=== PATIENT | male | born 1960 | race Caucasian/White ===

== ENCOUNTER → 2018-11-02 | Outpatient (CLI) | payer OTHER ==
--- NOTE | 2018-11-02 17:30 | KCIC ---
6 view cervical spine series Clinical indications: Neck pain. FINDINGS: There is neural foraminal narrowing on the left side at C3-4 and C5-6 and C6-7 and on the right side at C3-4 and C4-5 and C5-6 and C6-7. This is due to a combination of uncinate joint and facet joint osteophyte formation. No acute fracture or discitis or lytic process or prevertebral soft tissue swelling is evident. No anterolisthesis is seen. There is moderate degenerative disc space narrowing and endplate spurring at C3-4 and C5-6. IMPRESSION: Moderate degenerative cervical spondylosis. Electronically signed by: Servando Giron MD (11/02/2018 5:26 PM) [facility]
== END | disposition home or self-care (01) ==
LOC: KCIC 09:53
PROVIDERS: ATTEND Physician Assistant Medical
DX: M47.892 Other spondylosis, cervical region (principal); M48.02 Spinal stenosis, cervical region; M50.31 Other cervical disc degeneration, high cervical region; M25.78 Osteophyte, vertebrae
CPT/HCPCS: 72050

== ENCOUNTER → 2019-02-13 | Outpatient (CLI) | payer OTHER ==
--- NOTE | 2019-02-13 17:55 | KCIC ---
MRI of the cervical spine without contrast 02/13/2019 CLINICAL HISTORY: Neck pain with left shoulder pain for 5 months. TECHNIQUE: Unenhanced T1-weighted, inversion recovery and T2-weighted sagittal images along with T2 weighted axial images of the cervical spine were obtained. The patient was unable to tolerate any further imaging and gradient echo axial images of the cervical spine were unable to be obtained. FINDINGS: Comparison is made to radiographs of the cervical spine dated 11/02/2018 Mild S-shaped curvature of the cervicothoracic spine is seen. There is straightening of the normal cervical lordosis. Degenerative signal changes are seen involving all the disks of the cervical spine. Loss of height of the C3-4, C5-6 and C6-7 discs is noted. Degenerative signal changes are seen within the marrow surrounding these discs. No definite area of abnormal signal intensity seen involving the cervical spinal cord. At the C2-3 disc space there is a mild generalized disc bulge. Degenerative changes are seen involving the uncovertebral and facet joints, right greater than left. These findings do not result in significant central spinal canal or neural foraminal stenosis. At the C3-4 disc space is a moderate generalized disc bulge. Degenerative changes are seen involving the uncovertebral and facet joints bilaterally. These findings efface anterior posterior CSF resulting in mild to moderate central spinal canal stenosis with mild cord impingement. Moderate to severe bilateral neural foraminal stenosis is seen. At the C4-5 disc space is a mild generalized disc bulge. Degenerative changes are seen involving the uncovertebral and facet joints, right greater than left. These findings do not result in significant central spinal canal stenosis. Mild to moderate right greater than left neural foraminal stenosis is seen. At the C5-6 disc space there is a mild generalized disc bulge. Degenerative changes are seen involving the uncovertebral and facet joints bilaterally. These findings result in mild central spinal canal stenosis without evidence of cord impingement. Mild to moderate bilateral neural foraminal stenosis is seen. At the C6-7 disc space is a mild generalized disc bulge. Degenerative changes are seen involving the uncovertebral and facet joints, right greater than left. These findings when combined do not result in significant central spinal canal stenosis. Mild to moderate right greater than left neural foraminal stenosis is seen. At the C7-T1 disc space there is a minimal generalized disc bulge. Degenerative changes are seen involving the facet joints bilaterally. These findings do not result in significant central spinal canal or neural foraminal stenosis. IMPRESSION: Degenerative changes are seen throughout the cervical spine. These findings result in mild to moderate central spinal canal stenosis with mild cord impingement at C3-4 and mild central spinal canal stenosis without evidence of cord impingement at C5-6. Multilevel neural foraminal stenosis of varying severity is seen as discussed above. Electronically signed by: Saul Greene MD (02/13/2019 5:52 PM) [facility]
== END | disposition home or self-care (01) ==
LOC: KCIC MRI 15:53
PROVIDERS: ATTEND Physician Assistant Medical
DX: M47.23 Other spondylosis with radiculopathy, cervicothoracic region (principal); M48.02 Spinal stenosis, cervical region; M50.13 Cervical disc disorder with radiculopathy, cervicothoracic region
CPT/HCPCS: 72141

== ENCOUNTER → 2019-03-06 | Outpatient (CLI) | payer OTHER ==
[~2019-03-06] MED LIST: FISH1CAP PO; MULT-246 PO; SIMV40TA3 PO
--- NOTE | 2019-03-07 07:07 | PAIN ---
DATE OF SERVICE: 03/06/2019 INITIAL CONSULTATION FOR PAIN CLINIC CHIEF COMPLAINT: Neck and left lower extremity pain. HISTORY OF PRESENT ILLNESS: This is a 58-year-old male who presents with history of pain base of the neck, left shoulder, left upper extremity, radiating since 09/2018. Not a result of any specific injury or action he is aware of, but got worse and then got slightly better after that. Still some significant numbness and pain, now radiating to the base of the neck and left shoulder, mostly in the anterior deltoid, anterior biceps, into the forearm and into the posterior deltoid as well. The patient is very active. He plays competitive league softball and golf and is very active on his job as well. The patient reports he has some significant numbness and tingling in the left arm and shoulder, burning pain as well in the base of the neck. Again, the neck pain has gotten better with time but the arm and shoulder pain and tingling remained. The patient has been doing some stretching and strengthening exercises on his own, has not had any formal physical therapy, but is doing some stretching and staying very active again with his sports and with work. The patient is taking oxycodone, which does decrease the pain, he took that in January, but has not had any since. The patient did have MRI scan of the cervical spine, showing [id number] generalized disk bulges at C2-C3, C3-C4, C4-C5 and C5-C6, showing mild central spinal canal stenosis without cord impingement, mild to moderate bilateral neural foraminal stenosis at C5-C6 level as well, [id number] right greater than left neural foraminal stenosis at C4-C5 and C6-C7, showing generalized disk bulge with [id number] right greater than left neural foraminal stenosis. The patient's disability rates from 0-10, 10 being the worst, is at 0 in all categories. The patient reports he has been doing his activities, family and home responsibilities, recreation, social activity, occupation, sexual behavior, self-care and life support activities, just putting up with the pain and it does not limit him significantly functionally. PAST MEDICAL HISTORY: Significant for mononucleosis, hyperlipidemia, and arthritis. PAST SURGICAL HISTORY: Previous surgery includes left knee scope and a nose reconstructive surgery. CURRENT MEDICATIONS: Include fish oil, multivitamins, and simvastatin. ALLERGIES: THE PATIENT IS ALLERGIC TO . FAMILY HISTORY: No significant major medical problems or conditions he is aware of. SOCIAL HISTORY: The patient does not drink alcohol and does not smoke, does not use any illegal, illicit or recreational drugs. He is and lives with his spouse, lives locally in [place], [place]. 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 REVIEW OF SYSTEMS: The patient's review of systems is positive for those items mentioned in history of present illness. All systems reviewed and otherwise negative. It is complete, full and well documented on the patient's chart. PHYSICAL EXAMINATION: VITAL SIGNS: The patient's blood pressure is 151/105, pulse 67, respirations 16, temperature is 98.0 degrees Fahrenheit. Height is 5 feet 9 inches, weight is 191 pounds. GENERAL: The patient is awake, alert, oriented, appropriate, very pleasant demeanor. HEENT: Shows normocephalic, atraumatic. Extraocular movements are intact and symmetrical. Oral cavity, mucous membranes moist and pink. Dentition is intact. NECK: Shows anterior throat supple without palpable lymphadenopathy noted. Swallow reflex symmetrical. CHEST: Shows normal with inspection. Breath sounds clear to auscultation bilaterally. HEART: Shows S1 and S2 clear. No murmurs auscultated. ABDOMEN: Soft, nontender, and nondistended. No palpable organomegaly is noted. No rebound or guarding demonstrated. BACK: Shows spine grossly in the midline. Cervical paraspinous muscle shows symmetrical on inspection. On palpation shows some moderate tenderness diffusely bilaterally, but only diffusely in the middle and lower distribution of the paraspinous muscles. The patient has full rotational motion both laterally greater than 45 degrees right and left, as well as full extension, full forward flexion with some minor pain with full forward flexion now with extension. EXTREMITIES: Upper extremities show deep tendon reflexes 2+ in the biceps, triceps tendons. Motor exam is strong with inpatient services rn strength rated at 5/5, as is bicep and tricep flexion and equal bilaterally. Peripheral pulses are 2+ in radial distribution. Upper extremities are warm and dry to touch, equal in color and appearance. The patient's shoulder shrug is strong and intact without loss of strength on resistance as is abduction of shoulder to 90 degrees. Some minor pain is reported in the left anterior shoulder, but without loss of strength on resistance left side only. SKIN: Warm, dry, good turgor. No edema, no sores, no rash, no bruising noted. IMPRESSION: 1. This is a 58-year-old male with approximate 6-month history of increasing pain at base of the neck, left shoulder, and upper extremity, now mostly in the shoulder and arm in a radicular fashion following a C5-C6 pattern, dermatomal pattern on the left side. 2. MRI scan of the cervical spine as noted. 3. History of arthritis. PLAN: Options were discussed with the patient including conservative medical management, physical therapy, interventional technique. He would like to pursue interventional technique, as he is doing stretching and strengthening exercises on his own and stays very active with his sports and work. We discussed a cervical epidural steroid injection using description, as well as anatomical models to describe the procedure. The patient will return to clinic after preauthorization for cervical epidural steroid injection at the C5-C6 level translaminar approach for his left C5-C6 radiculopathy on the left. The patient was given a Medrol Dosepak in the meantime with instructions, side effects to be aware of. We will have the patient to return in approximately 1 week and we will plan on cervical epidural steroid injection at that time. RAJAT FARAH MD DR: REYNA/nts JOB#: [id number] / [id number] KADIE Vázquez MD
== END | disposition home or self-care (01) ==
LOC: PNCL 08:40
PROVIDERS: ATTEND Anesthesiology
DX: M48.02 Spinal stenosis, cervical region (principal); E78.5 Hyperlipidemia, unspecified; M19.90 Unspecified osteoarthritis, unspecified site
CPT/HCPCS: G0463

== ENCOUNTER 2022-01-16 06:34 | Emergency (ER) | payer OTHER ==
[~2022-01-16] VITALS: Ht 175.3 cm; Wt 82.0 kg
[~2022-01-16 06:34] MED LIST changes: +SIMV40TA18 PO; -SIMV40TA3 PO
[2022-01-16] MEDS ORDERED: ASPIRIN 325 MG TABLET PO ONE (07:00)
[2022-01-16] MEDS ORDERED: ONDANSETRON PF 4 MG/2 ML VIAL. IVP ONE (07:00)
[2022-01-16 07:12] LABS: BASO % 0 % (0-3); EOS % 12 % (0-3); HEMATOCRIT 43.5 % (39.0-53.0); HEMOGLOBIN 14.8 g/dL (13.0-17.5); LYMPH # 1.3 x10^3/uL (1.0-4.8); LYMPH % 16 % (24-48); MEAN CORPUSCULAR HEMOGLOBIN 30 pg (25-35); MEAN CORPUSCULAR HGB CONC 34 g/dL (31-37); MEAN CORPUSCULAR VOLUME 87 fL (79-100); MONO # 0.6 x10^3/uL (0.0-1.1); MONO % 7 % (0-9); NEUT # 5.3 x10^3/uL (1.8-7.7); NEUT % 65 % (31-73); PLATELET COUNT 307 x10^3/uL (140-400); RED BLOOD COUNT 4.98 x10^6/uL (4.30-5.70); RED CELL DISTRIBUTION WIDTH 13.6 % (11.5-14.5); WHITE BLOOD COUNT 8.1 x10^3/uL (4.0-11.0)
[2022-01-16] MEDS ORDERED: MECLIZINE HCL 12.5 MG TABLET. PO ONE (07:15)
[2022-01-16] MEDS ORDERED: IV NORMAL SALINE 1000ML BAG 1,000 ML IV ONE (07:15)
[2022-01-16 07:24] LABS: CALCIUM 8.6 mg/dL (8.5-10.1); CREATININE 1.1 mg/dL (0.7-1.3); GFR 68.1; POTASSIUM 4.3 mmol/L (3.5-5.1)
--- NOTE | 2022-01-16 07:27 | RAD ---
EXAM: Chest, single view. HISTORY: Chest pain. COMPARISON: None. FINDINGS: A frontal view of the chest is obtained. There is no infiltrate, pleural effusion or pneumo thorax. There is bilateral infrahilar atelectasis or scarring. There is mild eventration of the right hemidiaphragm. The heart is normal in size. IMPRESSION: No acute pulmonary finding. Electronically signed by: Ernestina Love MD (01/16/2022 7:24 AM) [id number]
[2022-01-16 07:30] LABS: ALBUMIN 3.4 g/dL (3.4-5.0); ALBUMIN/GLOBULIN RATIO 0.8 (1.0-1.7); MAGNESIUM 1.9 mg/dL (1.8-2.4); TOTAL BILIRUBIN 0.4 mg/dL (0.2-1.0); TOTAL PROTEIN 7.7 g/dL (6.4-8.2)
[2022-01-16] MEDS ORDERED: CONTRAST GIVEN. MC PRN (09:15)
[2022-01-16] MEDS ORDERED: IOHEXOL 350 MG/ML 100 ML VIAL. IV ONE (09:15)
--- NOTE | 2022-01-16 09:46 | RAD ---
EXAM: CT angiography of the chest with intravenous contrast. HISTORY: Elevated d-dimer. TECHNIQUE: Computed tomographic images of the chest were obtained following the administration of int ravenous contrast according to angiography protocol. Multiplanar reformatting was performed and three dimensional maximum intensity projection images were obtained. *One or more of the following individualized dose reduction techniques were utilized for this examina tion: 1. Automated exposure control. 2. Adjustment of the mA and/or kV according to patient size. 3. Use of iterative reconstruction technique. COMPARISON: None. FINDINGS: There is no evidence of pulmonary embolism. The heart is normal in size. The aorta is milka l in caliber. The left vertebral artery originates directly from the aortic arch, a normal aortic arc h branching variant. There are prominent mediastinal and hilar lymph nodes. For reference purposes, t here is a left hilar lymph node measuring 1.7 cm. There is a right paratracheal lymph node measuring 1.9 cm. There is no pleural effusion. There is no pneumothorax. There is mild biapical pleural parenc hymal scarring. There is a 4 mm nodule along the right major pleural fissure, likely a fissural lymph node. There is a similar-appearing 4 mm nodule within the left pleural fissure. There is posterior d ependent and basilar atelectasis. There is no acute finding involving the upper abdomen. There is a p rominent left renal collecting system which is partially included on the [id number]. There is no a cute or suspicious osseous finding. IMPRESSION: 1. No evidence of pulmonary embolism or alternative acute thoracic finding. 2. Prominent mediastinal and hilar lymph nodes. These may be reactive in etiology. There are also 4 m m nodules along the pleural fissures which are likely due to fissural lymph nodes. Follow-up can be p erformed in one year to confirm stability or resolution if there are risk factors for neoplasm. Electronically signed by: Ernestina Love MD (01/16/2022 9:43 AM) [id number]
--- NOTE | 2022-01-16 10:05 | PHYS DOC ---
Past Medical History Past Surgical History: Other Additional Past Surgical Histo: KNEE SCOPE Smoking Status: Never Smoker Alcohol Use: None General Adult EDM: Chief Complaint: DIZZY/LIGHT HEADED HPI: HPI: Patient is a 61 year old male who presents with lightheadedness, diaphoresis this morning. Patient states that he has never felt this way before, he stated it lasted about 20 minutes after he tried to get up from a resting position, he states that when he turned his head he felt the symptoms. He states that he feels dizzy. Otherwise he is asymptomatic. He was able to ambulate, no issues with ambulation, no chest pain, no shortness of breath, no leg pain. Review of Systems: Review of Systems: Constitutional: Denies fever or chills. [] Eyes: Denies change in visual acuity. [] HENT: Denies nasal congestion or sore throat. [] Respiratory: Denies cough or shortness of breath. [] Cardiovascular: Denies chest pain or edema. [] GI: Denies abdominal pain, nausea, vomiting, bloody stools or diarrhea. [] : Denies dysuria. [] Musculoskeletal: Denies back pain or joint pain. [] Integument: Denies rash. [] Neurologic: Denies headache, focal weakness or sensory changes. [] Endocrine: Denies polyuria or polydipsia. [] Lymphatic: Denies swollen glands. [] Psychiatric: Denies depression or anxiety. [] Heart Score: C/O Chest Pain: Yes HEART Score for Chest Pain: HEART Score for Chest Pain Response (Comments) Value History Slighlty/Non-Suspicious 0 ECG Normal 0 Age >45 - < 65 1 Risk Factors 1 or 2 Risk Factors 1 Troponin < Normal Limit 0 Total 2 Risk Factors: Risk Factors: DM, Current or recent (<one month) smoker, HTN, HLP, family history of CAD, obesity. Risk Scores: Score 0 - 3: 2.5% MACE over next 6 weeks - Discharge Home Score 4 - 6: 20.3% MACE over next 6 weeks - Admit for Clinical Observation Score 7 - 10: 72.7% MACE over next 6 weeks - Early Invasive Strategies Current Medications: Current Medications Medications (Trade) Dose Ordered Sig/Rip Start Time Stop Time Status Last Admin Dose Admin Aspirin (Tal Aspirin) 325 mg 1X ONCE 01/16/22 07:00 01/16/22 07:01 DC 01/16/22 07:03 325 MG Info (CONTRAST GIVEN -- Rx MONITORING) 1 each PRN DAILY PRN 01/16/22 09:15 01/18/22 09:14 Iohexol (Omnipaque 350 Mg/ml) 100 ml 1X ONCE 01/16/22 09:15 01/16/22 09:16 DC 01/16/22 09:28 100 ML Meclizine HCl (Antivert) 25 mg 1X ONCE 01/16/22 07:15 01/16/22 07:16 DC 01/16/22 07:33 25 MG Ondansetron HCl (Zofran) 4 mg 1X ONCE 01/16/22 07:00 01/16/22 07:01 DC 01/16/22 07:03 4 MG Sodium Chloride 1,000 ml @ 1,000 mls/hr 1X ONCE 01/16/22 07:15 01/16/22 08:14 DC 01/16/22 07:32 1,000 MLS/HR Allergies: Allergies: Allergies Coded Allergies Type Severity Reaction Last Updated Verified Phenothiazines Allergy Intermediate MUS 01/16/22 Yes Physical Exam: PE: Constitutional: Well developed, well nourished, no acute distress, non-toxic appearance. [] HENT: Normocephalic, atraumatic, bilateral external ears normal, oropharynx moist, no oral exudates, nose normal. [] Eyes: PERRLA, EOMI, conjunctiva normal, no discharge. [] Neck: Normal range of motion, no tenderness, supple, no stridor. [] Cardiovascular:Heart rate regular rhythm, no murmur [] Lungs & Thorax: Bilateral breath sounds clear to auscultation [] Abdomen: Bowel sounds normal, soft, no tenderness, no masses, no pulsatile masses. [] Skin: Warm, dry, no erythema, no rash. [] Back: No tenderness, no CVA tenderness. [] Extremities: No tenderness, no cyanosis, no clubbing, ROM intact, no edema. [] Neurologic: Alert and oriented X 3, normal motor function, normal sensory function, no focal deficits noted. [] Psychologic: Affect normal, judgement normal, mood normal. [] Current Patient Data: Labs: Laboratory Tests Test 01/16/22 06:40 01/16/22 07:40 White Blood Count 8.1 x10^3/uL (4.0-11.0) Red Blood Count 4.98 x10^6/uL (4.30-5.70) Hemoglobin 14.8 g/dL (13.0-17.5) Hematocrit 43.5 % (39.0-53.0) Mean Corpuscular Volume 87 fL (79-100) Mean Corpuscular Hemoglobin 30 pg (25-35) Mean Corpuscular Hemoglobin Concent 34 g/dL (31-37) Red Cell Distribution Width 13.6 % (11.5-14.5) Platelet Count 307 x10^3/uL (140-400) Neutrophils (%) (Auto) 65 % (31-73) Lymphocytes (%) (Auto) 16 % (24-48) L Monocytes (%) (Auto) 7 % (0-9) Eosinophils (%) (Auto) 12 % (0-3) H Basophils (%) (Auto) 0 % (0-3) Neutrophils # (Auto) 5.3 x10^3/uL (1.8-7.7) Lymphocytes # (Auto) 1.3 x10^3/uL (1.0-4.8) Monocytes # (Auto) 0.6 x10^3/uL (0.0-1.1) Eosinophils # (Auto) 1.0 x10^3/uL (0.0-0.7) H Basophils # (Auto) 0.0 x10^3/uL (0.0-0.2) Sodium Level 141 mmol/L (136-145) Potassium Level 4.3 mmol/L (3.5-5.1) Chloride Level 105 mmol/L (98-107) Carbon Dioxide Level 29 mmol/L (21-32) Anion Gap 7 (6-14) Blood Urea Nitrogen 25 mg/dL (8-26) Creatinine 1.1 mg/dL (0.7-1.3) Estimated GFR (Cockcroft-Gault) 68.1 BUN/Creatinine Ratio 23 (6-20) H Glucose Level 111 mg/dL (70-99) H Calcium Level 8.6 mg/dL (8.5-10.1) Magnesium Level 1.9 mg/dL (1.8-2.4) Total Bilirubin 0.4 mg/dL (0.2-1.0) Aspartate Amino Transferase (AST) 20 U/L (15-37) Alanine Aminotransferase (ALT) 28 U/L (16-63) Alkaline Phosphatase 68 U/L (46-116) Troponin I High Sensitivity 6 ng/L (4-75) LJ-Pez-V-Type Natriuretic Peptide 19 pg/mL (0-124) Total Protein 7.7 g/dL (6.4-8.2) Albumin 3.4 g/dL (3.4-5.0) Albumin/Globulin Ratio 0.8 (1.0-1.7) L Lipase 115 U/L (73-393) Thyroid Stimulating Hormone (TSH) 0.924 uIU/mL (0.358-3.74) D-Dimer (Zuleyma) 1.20 ug/mlFEU (0.00-0.50) H Laboratory Tests 01/16/22 06:40 Laboratory Tests 01/16/22 06:40 Vital Signs: Vital Signs Date Time Temp Pulse Resp B/P (MAP) Pulse Ox O2 Delivery O2 Flow Rate FiO2 01/16/22 08:09 50 18 161/81 (107) 99 Room Air 01/16/22 06:40 97.6 97.6 EKG: EKG: Normal sinus rhythm, left axis deviation [] Radiology/Procedures: Radiology/Procedures: Chest x-ray within normal limit PATIENT: RENETTA HILARIO DACCOUNT: [id number]#: [id number] : 1960 LOCATION: ER AGE: 61 SEX: M EXAM STATUS: REG ER ORD. PHYSICIAN: MILLY MURGUIA MD REASON: elevated ddimer Omni 350 100ml PROCEDURE: CT ANGIOGRAPHY CHEST EXAM: CT angiography of the chest with intravenous contrast. HISTORY: Elevated d-dimer. TECHNIQUE: Computed tomographic images of the chest were obtained following the administration of intravenous contrast according to angiography protocol. Multiplanar reformatting was performed and three dimensional maximum intensity projection images were obtained. *One or more of the following individualized dose reduction techniques were utilized for this examination: 1. Automated exposure control. 2. Adjustment of the mA and/or kV according to patient size. 3. Use of iterative reconstruction technique. COMPARISON: None. FINDINGS: There is no evidence of pulmonary embolism. The heart is normal in size. The aorta is normal in caliber. The left vertebral artery originates directly from the aortic arch, a normal aortic arch branching variant. There are prominent mediastinal and hilar lymph nodes. For reference purposes, there is a left hilar lymph node measuring 1.7 cm. There is a right paratracheal lymph node measuring 1.9 cm. There is no pleural effusion. There is no pneumothorax. There is mild biapical pleural parenchymal scarring. There is a 4 mm nodule along the right major pleural fissure, likely a fissural lymph node. There is a similar-appearing 4 mm nodule within the left pleural fissure. There is posterior dependent and basilar atelectasis. There is no acute finding involving the upper abdomen. There is a prominent left renal collecting system which is partially included on the [id number]. There is no acute or suspicious osseous finding. IMPRESSION: 1. No evidence of pulmonary embolism or alternative acute thoracic finding. 2. Prominent mediastinal and hilar lymph nodes. These may be reactive in etiology. There are also 4 mm nodules along the pleural fissures which are likely due to fissural lymph nodes. Follow-up can be performed in one year to confirm stability or resolution if there are risk factors for neoplasm. Electronically signed by: Ernestina Love MD (01/16/2022 9:43 AM) [id number] [] Impression: Vertigo Course & Med Decision Making: Course & Med Decision Making Pertinent Labs and Imaging studies reviewed. (See chart for details) 61-year-old male presenting with lightheadedness, dizziness, diaphoresis, patient states that symptoms resolved while in the emergency department. Patient states he feels great. He is walking in the room, he states that he feels absolutely fine now. Patient was given 1 dose of aspirin as well as 1 dose of meclizine. Patient was given 1 L of normal saline, serum labs and urine studies were ordered. D-dimer was elevated, CT scan of the chest angiography was ordered, CT scan was negative but did show hilar lymphadenopathy which should be followed up in 1 year. Patient was notified of these findings. Other lopez, patient heart score is 2. Patient is otherwise doing well. Patient is asymptomatic. No signs of ACS. I reviewed the findings with the patient, chances of recurrent symptoms, and chances of ACS. Patient was comfortable with discharge and follow-up with primary care physician soon after discharge. Patient will be followed up and evaluated for stress test. Patient hemodynamically stable at discharge. Repeat troponin within normal limits. Patient agreed with plan of action, ER precautions given. Dragon Disclaimer: Dragon Disclaimer: This electronic medical record was generated, in whole or in part, using a voice recognition dictation system. Departure Departure Referrals: KADIE STOVALL MD (PCP) Scripts Meclizine Hcl (MECLIZINE HCL) 12.5 Mg Tablet 12.5 MG PO DAILY PRN for DIZZINESS, #10 TAB Prov: MLILY MURGUIA MD 01/16/22 MILLY MURGUIA MD January 16, 2022 10:05
[2022-01-16 10:06] LABS: BARBITURATES NEG (NEG); BENZODIAZEPINES NEG (NEG); CANNABINOIDS NEG (NEG); COCAINE NEG (NEG); METHADONE NEG (NEG); OPIATES NEG (NEG); PHENCYCLIDINE NEG (NEG)
[2022-01-16 10:08] LABS: AMPHETAMINE/METHAMPHETAMINE NEG (NEG)
[2022-01-16 10:20] VITALS: BP 143/75
[2022-01-16] MEDS ORDERED: MECL12.582 PO (10:31)
--- NOTE | 2022-01-16 12:03 | EKG ---
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
--- NOTE | 2022-01-16 12:03 | EKG ---
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
--- NOTE | 2022-01-16 12:05 | EKG ---
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
== END 2022-01-16 10:52 | disposition home or self-care (01) ==
LOC: ER 06:34
DX: R42 Dizziness and giddiness (principal); R61 Generalized hyperhidrosis
CPT/HCPCS: 36415; 71045; 71275; 80053; 80307; 83690; 83735; 83880; 84443; 84484; 85025; 85379; 93005; 96361; 96374; 99285; J2405; J7030; J8597; Q9967